=== PATIENT | male | born 1985 | race Caucasian/White ===

== ENCOUNTER 2023-02-21 12:24 | Emergency (ER) | payer OTHER ==
[~2023-02-21] VITALS: Ht 177.8 cm; Wt 73.0 kg
[2023-02-21 13:09] VITALS: BP 135/99; O2SAT 99
[2023-02-21] MEDS ORDERED: KETOROLAC 60MG/2ML VIAL IM STA (15:52)
[2023-02-21] MEDS ORDERED: ACETAMINOPHEN 325MG TABLET PO ONE (16:00)
[2023-02-21] MEDS ORDERED: BACITRACIN ZINC OINT UDPKT TOP ONE (16:00)
[2023-02-21] MEDS ORDERED: LIDOCAINE HCL/PF 1% 10 MG/ML 5ML VIAL INFIL ONE (16:00)
[2023-02-21] MEDS ORDERED: NAPR-681 PO (16:18)
[2023-02-21 17:07] VITALS: PULSE 64; RESP 12; TEMP 98.2
== END 2023-02-21 17:12 | disposition home or self-care (01) ==
LOC: ER 13:24
DX: S61.214A Laceration without foreign body of right ring finger without damage to nail, initial encounter (principal); W26.8XXA Contact with other sharp object(s), not elsewhere classified, initial encounter; Y93.89 Activity, other specified; Y92.89 Other specified places as the place of occurrence of the external cause; Y99.8 Other external cause status
CPT/HCPCS: 99283; J3490; Z7610